=== PATIENT | male | born 1970 | race African-American/Black ===

== ENCOUNTER 2018-09-14 12:28 | Emergency (ER) | payer MEDICAID, OTHER, SELFPAY ==
[~2018-09-14] VITALS: Ht 180.3 cm; Wt 81.6 kg
[2018-09-14] MEDS ORDERED: NORCO 5-325 TA1 EACH ORAL (12:34)
[2018-09-14 12:37] VITALS: BP 155/80
--- NOTE | 2018-09-14 12:39 | NUR ---
ED Nurse Note:pt. came due to right arm pain no injury reported at this time, no redness or swelling noted
[2018-09-14] MEDS ORDERED: IBUPROFEN800 MG ORAL (12:57)
--- NOTE | 2018-09-14 12:58 | Emergency Room Report ---
History of Present Illness General Chief Complaint: Upper Extremity Injury Source: Patient Present Illness HPI 48-year-old male patient presents the ER complaining of right arm pain times 3 weeks. Denies acute injury or trauma during that time. Reports history of broken arm 6 years ago. Reports that he was seen at another ER 1 week ago for similar symptoms, states x-ray at that time was negative. Reports they discharged him home with Thorp for several days and gabapentin stating that it was nerve pain. Reports that he has a follow-up appointment scheduled for September 22, 2018 with his new primary care doctor, states that he just changed insurance. Reports that he believes the work he does exacerbates the pain. States that he normally can take Tylenol which helps to alleviate the pain however states that he was not able to do so today. Reports that he has been taking the gabapentin as needed. Denies fever, chest pain, shortness of breath. Denies history of blood disease or blood clots. Denies vomiting or diarrhea. Denies arm swelling or redness. Denies loss of function. Reports pain from his arm radiates up the shoulder down his hand. States has been using lidocaine patches, currently applied to arm. Denies smoking cigarettes, denies recent travel. Denies hx IV drug use. Denies hx diabetes. Reports hx of abscess in same arm "years ago". Allergies: Coded Allergies: No Known Allergies (Unverified , 09/14/18) Patient History Past Medical History: see triage record Reviewed Nursing Documentation: PMH: Agreed; PSxH: Agreed Nursing Documentation-PMH Past Medical History: No Stated History Review of Systems All Other Systems: negative except mentioned in HPI Physical Exam Vital Signs Date Time Temp Pulse Resp B/P (MAP) Pulse Ox O2 Delivery O2 Flow Rate FiO2 09/14/18 12:29 98.4 80 18 155/80 97 Room Air Sp02 EP Interpretation: reviewed, normal General Appearance: well appearing, no apparent distress, alert, GCS 15, non- toxic Head: normocephalic, atraumatic Eyes: bilateral eye normal inspection, bilateral eye PERRL ENT: hearing grossly normal, normal pharynx, no angioedema, normal voice, uvula midline, moist mucus membranes Neck: full range of motion Respiratory: lungs clear, normal breath sounds, no rhonchi, no respiratory distress, no accessory muscle use, no wheezing, speaking full sentences Cardiovascular #1: regular rate, rhythm, no edema Cardiovascular #2: 2+ radial (R), 2+ radial (L) Musculoskeletal: back normal, digits/nails normal, gait/station normal, normal range of motion, other - AIN, PIN, radial nerve, axillary nerve intact, cap refill less than 2 seconds, tender - Right midshaft humerus Neurologic: alert, oriented x3, responsive, motor strength/tone normal, sensory intact Psychiatric: mood/affect normal Skin: no rash, other - No erythema, no edema, no palpable mass Lymphatic: no adenopathy Medical Decision Making PA Attestation Dr. Beltran is my supervising Physician whom patient management has been discussed with. Diagnostic Impression: Primary Impression: Pain in right arm ER Course Pt. presents to the ED c/o right arm pain. Ddx considered but are not limited to fracture, sprain, strain, contusion, dislocation, DVT, radicular pain, acute exacerbation of chronic pain, opioid dependence, cellulitis. No erythema, no warmth to touch, no fever, nontoxic appearing, low suspicion for septic joint. Soft compartments, no pulselessness, no pallor, no paresthesias, low suspicion for compartment syndrome at this time. No erythema, no edema, no palpable mass, low suspicion for cellulitis or abscess. Vital signs: are WNL, pt. is afebrile ER COURSE Provided with pain medication in the ER. Cures reviewed. Informed patient would not provide refill of opioid pain medication. US right upper extremity negative for DVT. No acute injury or trauma, does not require x-ray at this time. Likely radicular pain, need ortho and pain management followup. Terrance wrap was applied to the right arm and was checked afterwards by me showing good alignment and support with distal neurovascular functioning intact. Patient instructed on RICE method: rest, ice, compression, elevation. Patient instructed on rest, ice and heat. Patient instructed to be WBAT Work note provided. Contact information for orthopedic urgent care provided, follow-up with urgent care if unable to followup with primary care provider and get referral to hospitality specialist. Followup with primary care provider. Discuss referral to ortho/pain management/ PT as needed. Discuss further imaging with MRI/CT as needed. DISCHARGE: -Rx provided for Ibuprofen for pain symptoms. At this time pt. is stable for d/c to home. Patient is resting comfortably, in no acute distress, nontoxic appearing, talking without difficulty. Will provide printed patient care instructions, and any necessary prescriptions. Patient instructed to follow with primary care provider in 3 - 5 days and to request further follow-up as needed. Care plan and follow up instructions have been discussed with the patient prior to discharge. Take medications as directed. Patient questions asked and answered. Patient reports understanding and agreement to treatment plan. ER precautions given, patient instructed to return to ER immediately for any new or worsening of symptoms. - Please note that this Emergency Department Report was dictated using [employer] software, occasionally this can lead to erroneous entry secondary to interpretation by the dictation equipment. CT/MRI/US Diagnostic Results CT/MRI/US Diagnostic Results : Imaging Test Ordered: venous duplex US RUE Impression negative for DVT Last Vital Signs Date Time Temp Pulse Resp B/P (MAP) Pulse Ox O2 Delivery O2 Flow Rate FiO2 09/14/18 12:37 98.4 72 18 155/80 97 Room Air Status: improved Disposition: HOME, SELF-CARE Condition: Stable Scripts Ibuprofen* (MOTRIN*) 800 Mg Tablet 800 MG ORAL Q8H, #30 TAB 0 Refills Prov: Mikie Ibarra 09/14/18 Patient Instructions: Cervical Radiculopathy, [id number], Humerus Fracture ( Thrower's Fracture) With [facility]hab[facility] Additional Instructions: Patient instructed to follow up with primary care provider and discuss further referral to orthopedics/physical therapy/pain management as needed. If unable to followup with PCP, followup with orthopedic urgent care in 5-7 days , call to schedule appointment. Patient instructed on RICE method: rest, ice, compression, elevation. Patient instructed to WBAT. Take medications as directed. Patient questions asked and answered. ER precautions given, patient instructed to return to ER immediately for any new or worsening of symptoms. [facility] [address] [facility] [address] [facility], [id number] [email or web address] Mikie Ibarra Sep 14, 2018 12:58
[2018-09-14] MEDS ORDERED: Norco 5mg/325mg tab ORAL ONE (13:00)
[2018-09-14 14:30] VITALS: BP 147/76
--- NOTE | 2018-09-14 14:31 | NUR ---
ER DISCHARGE NOTE:arm sling was placed on right arm Patient is cleared to be discharged per ERMD, pt is aox4, on room air, with stable vital signs. pt was given dc and prescription instructions, pt was able to verbalize understanding, pt is able to ambulate with steady gait. pt took all belongings.
--- NOTE | 2018-09-14 14:49 | Diagnostic Imaging Report ---
Indication: Right upper extremity pain and swelling. Technique: Duplex Doppler imaging of the veins in the right upper extremity performed. FINDINGS: The jugular and subclavian veins demonstrate normal color flow and waveform signal. No evidence of thrombosis. Continuation to the axillary vein, brachial, cephalic and basilic veins show no evidence of thrombosis with good compressibility, normal color flow and waveform analysis. IMPRESSION: No evidence of thrombosis involving the right upper extremity in question.
== END 2018-09-14 14:32 | disposition home or self-care (01) ==
LOC: EMR 13:40
DX: M79.601 Pain in right arm (principal)
CPT/HCPCS: 93971; 99284